=== PATIENT | male | born 2000 | race Caucasian/White ===

== ENCOUNTER 2021-06-27 10:32 | Emergency (ER) | payer OTHER ==
[~2021-06-27] VITALS: Ht 182.9 cm; Wt 78.2 kg
[2021-06-27] MEDS ORDERED: NS 1,000 ML IV ONE ×2 (11:25→14:05)
[2021-06-27] MEDS ORDERED: dexameTHASONE 20MG/5ML VIAL (J1100 PER 1MG) IV ONE (11:25)
[2021-06-27] MEDS ORDERED: ACETAMINOPHEN 500 MG TAB PO ONE (11:55)
[2021-06-27] MEDS ORDERED: ONDANSETRON 4MG/2ML VIAL IV ONE (11:55)
[2021-06-27 11:56] LABS: HEMATOCRIT 40.2 % (42.0-52.0); HEMOGLOBIN 13.4 g/dl (13.5-17.5); MEAN CORPUSCULAR HEMOGLOBIN 29.5 pg (27.0-33.0); MEAN CORPUSCULAR HGB CONC 33.3 g/dl (32.0-36.5); MEAN CORPUSCULAR VOLUME 88.4 fl (80.0-96.0); PLATELET COUNT, AUTOMATED 123 10^3/uL (150-450); RED BLOOD COUNT 4.55 10^6/uL (4.30-6.10); WHITE BLOOD COUNT 9.4 10^3/uL (4.0-10.0)
[2021-06-27 12:17] LABS: BLOOD UREA NITROGEN 15 MG/DL (7-18); CALCIUM LEVEL 8.5 MG/DL (8.5-10.1); CARBON DIOXIDE LEVEL 27 MEQ/L (21-32); CHLORIDE LEVEL 99 MEQ/L (98-107); CREATININE FOR GFR 0.88 MG/DL (0.70-1.30); GLUCOSE, FASTING 105 MG/DL (70-100); POTASSIUM SERUM 4.3 MEQ/L (3.5-5.1); SODIUM LEVEL 133 MEQ/L (136-145)
[2021-06-27 12:18] LABS: ATYPICAL LYMPH 17 % (0-5); BASOPHILS 1 % (0-1); LYMPHOCYTES 30 % (16-44); METAMYELOCYTES 2 % (0-0); MONOCYTES 6 % (0-5); MYELOCYTES 1 % (0-0); NEUTROPHILS 31 % (28-66); PLATELET ESTIMATE DECREASED (NORMAL)
[2021-06-27 12:19] LABS: ERYTHROCYTE SEDIMENTATION RATE 43 mm/hr (0-15)
[2021-06-27 12:26] LABS: MONO REFLEX EBV COMP POSITIVE (NEGATIVE)
[2021-06-27 13:33] LABS: ALBUMIN 3.9 GM/DL (3.2-5.2); ALT/SGPT 50 U/L (12-78); BILIRUBIN,DIRECT 0.2 MG/DL (0.0-0.2); BILIRUBIN,TOTAL 0.6 MG/DL (0.2-1.0)
[2021-06-27] MEDS ORDERED: PRED20TA PO (14:13)
[2021-06-27 15:38] VITALS: BP 116/56
== END 2021-06-27 15:47 | disposition home or self-care (01) ==
LOC: M ED 10:32
DX: B27.90 Infectious mononucleosis, unspecified without complication (principal); F17.210 Nicotine dependence, cigarettes, uncomplicated
CPT/HCPCS: 80048; 80076; 83605; 85025; 85652; 86140; 86308; 87040; 96361; 96374; 99284; J1100; J2405

== ENCOUNTER 2024-01-12 18:20 | Emergency (ER) | payer OTHER ==
[~2024-01-12] VITALS: Ht 198.1 cm; Wt 90.0 kg
[~2024-01-12 18:20] MED LIST: PRED20TA PO
[2024-01-12 21:06] LABS: BASO % 0.3 % (0.0-1.0); EOS # 0.1 10^3/uL (0.0-0.5); EOS % 1.6 % (0.0-3.0); HEMATOCRIT 41.6 % (42.0-52.0); LYMPH # 2.5 10^3/uL (1.5-5.0); LYMPH % 40.1 % (24.0-44.0); MEAN CORPUSCULAR HEMOGLOBIN 30.6 pg (27.0-33.0); MEAN CORPUSCULAR HGB CONC 33.7 g/dl (32.0-36.5); MONO # 0.6 10^3/uL (0.0-0.8); NEUTROPHILS % 48.8 % (36.0-66.0); PLATELET COUNT, AUTOMATED 159 10^3/uL (150-450); RED BLOOD COUNT 4.57 10^6/uL (4.30-6.10); WHITE BLOOD COUNT 6.1 10^3/uL (4.0-10.0)
[2024-01-12 21:27] LABS: ETHYL ALCOHOL (ETHANOL) 0.003 % (0.000-0.010); LIPASE 24 U/L (12-53)
[2024-01-12 21:28] LABS: AMYLASE 53 U/L (30-118)
[2024-01-12 21:29] LABS: ALBUMIN 4.6 G/DL (3.2-5.2); ALKALINE PHOSPHATASE 71 U/L (46-116); ALT/SGPT 26 U/L (7.0-40); AST/SGOT 22 U/L (<34); BILIRUBIN,DIRECT 0.2 MG/DL (<0.4); BILIRUBIN,TOTAL 0.7 MG/DL (0.3-1.2); BLOOD UREA NITROGEN 23 MG/DL (9-23); CALCIUM LEVEL 9.1 MG/DL (8.5-10.1); CARBON DIOXIDE LEVEL 27 MMOL/L (20-31); CHLORIDE LEVEL 104 MMOL/L (98-107); CREATININE FOR GFR 0.87 MG/DL (0.70-1.30); GLOMERULAR FILTRATION RATE > 60.0 (>60); GLUCOSE, FASTING 105 MG/DL (60-100); POTASSIUM SERUM 3.7 MMOL/L (3.5-5.1); SODIUM LEVEL 138 MMOL/L (136-145); TOTAL PROTEIN 7.2 G/DL (5.7-8.2)
[2024-01-13] MEDS ORDERED: ONDA4TAB6 PO (02:48)
[2024-01-13] MEDS ORDERED: FLOM0.4C39 PO (02:48)
[2024-01-13] MEDS: TAMSULOSIN 0.4 MG CAP PO ONE (02:56)
[2024-01-13 03:11] VITALS: BP 139/82; TEMP 98.4; O2SAT 100
== END 2024-01-13 03:00 | disposition home or self-care (01) ==
LOC: M ED 18:20
DX: N20.1 Calculus of ureter (principal); F10.10 Alcohol abuse, uncomplicated; Z79.83 Long term (current) use of bisphosphonates; Z79.899 Other long term (current) drug therapy